=== PATIENT | female | born 1990 | race Caucasian/White ===

== ENCOUNTER 2017-01-04 18:37 | Emergency (ER) | payer OTHER ==
[~2017-01-04] VITALS: Ht 154.9 cm; Wt 88.5 kg
[~2017-01-04 18:37] MED LIST: BACTRIM DS 8001 TA1 PO; DOCUSATE SODIU250 M1 PO; IBUPROFEN 600M600 MG PO; LORTAB 5/500 501 TAB PO; OXYCODONE 5MG TA5 MG PO; PRENATAL PLUS1 TA1 PO
[2017-01-04 19:17] LABS: UTC STREP SCREEN NOT DETECTED (NOTDETECTED)
--- NOTE | 2017-01-04 20:20 | [facility] Report ---
History of Present Issue Date/Time Seen by Provider 01/04/172010 Visit Reason Pt arrived:Walked Presenting Problem:PT C/O SORE THROAT, SINUS CONGESTION, EAR PAIN, AND WYATT Location if Accident: Onset of symptoms date/time:/ or onset unknown for:MEDICAL HX UNKNOWN Have you (or family members/close friends) recently traveled outside the [place]? N If Yes, where/when: Have you had exposure to infectious disease within the past month? TB? Other? Specify: c/o sore throat, sinus pressure, nasal congestion, rhinorrhea, bilateral ear pressure and intermittent headache "in forehead" x 2 days. Hasn't taken or tried anything for symptoms. No known sick contacts. Achy at times. "some" chills. No known fever. Source patient Exam Limitations no limitations ALLERGIES Coded Allergies: No Known Allergies (11/26/15) Home Medications Reported Medications Acetaminophen W/ Hydrocodone (Lortab 5/500) 1 TAB PO Q6HP History Medical History General CAD? No Angina: No VT: No Hypertension? No Hyperlipidemia? No CHF? No DVT? No PE? No COPD? No Asthma? No Anemia? No GERD? No Gastric ulcers? No GI Bleed? No Hernia? No Thyroid Problems? No Hypothyroidism? No CVA? No Seizures? No Diabetes? No Renal Insuffiency? No UTI? No Stones? No BPH? No GB Disease: No Nephritic Syndrome? No Asplenia? No Hepatitis? No Sickle Cell Disease? No Arthritis? No Migraines? Yes Cataracts? No Glaucoma? No MRSA? No HIV? No TB? No Anxiety? No Depression? No Cancer? No More? No Immunization HX DT/Tetanus 1-4 YRS Surgical Hx Previous Surgery?Y WISDOM TEETH REMOVED IUD X2 Social History Smoking Hx Smoker: Never Smoker Tobacco: No Alcohol Alcohol: No Review of Systems All Other Systems Reviewed and Negative Constitutional see HPI Eyes denies drainage ENT throat pain (at night). denies: ear discharge. Respiratory denies shortness of breath, denies wheezing Cardiovascular denies chest pain Gastrointestinal denies no symptoms reported Skin denies rash Psychiatric/Neurological see HPI Physical Exam Vital Signs Vital Signs Date Time Temp Pulse Resp B/P Pulse O2 O2 Flow FiO2 Ox Delivery Rate 01/04 2023 98.5 67 20 108/65 100 01/04 1902 98.5 67 20 108/65 100 General Appearance normal appearance, no apparent distress Eye Exam - bilateral eye normal exam Ear, Nose, Throat normal ENT inspection (x/ mild nasal congestion) Neck non-tender, supple Respiratory Status No: respiratory distress (no cough). Lung Sounds anterior: lungs clear. posterior: lungs clear. bilateral: lungs clear. Cardiovascular regular rate/rhythm, no murmur Neurologic alert Skin normal color, warm/dry Lymphatic no adenopathy (cervical) Medical Decision Making LABS/Meds/Orders Pt receiving controlled substance in ED? No Results/Orders Laboratory Tests 01/04/171901: Influenza Type A Ag NOT DETECTED, Influenza Type B Ag NOT DETECTED, Group A Strep Screen NOT DETECTED Orders Procedure Date/time Status UTC STREP SCREEN 01/04 1902 Complete UTC FLU A,B 01/04 1902 Complete Departure Departure Time of Disposition 2019 Disposition DC Home or Self Care(routine) Clinical Impression Primary Impression: Upper respiratory virus Condition STABLE Referrals Gerardo Duvall MD (Family) Follow up immediately for new or worsening symptoms OR no noticeable improvement over the next 48-72 hours. Patient Instructions DI for Viral Upper Respiratory Infection -- Adult Additional Instructions Lots of rest Increase fluids, water, gatorade, powerade Alternate tylenol and/or ibuprofen for fever/aches/pain warm salt water gargles sleep elevated humidifier/vaporizer Discharge Counseling Counseled pt/family regarding diagnosis, test results, medications/RX, home care, follow up needs at 2220
[2017-01-04 20:23] VITALS: BP 108/65
== END 2017-01-04 20:24 | disposition home or self-care (01) ==
LOC: UTC 18:37
PROVIDERS: Nurse Practitioner Family
DX: J06.9 Acute upper respiratory infection, unspecified (principal)